=== PATIENT | female | born 1970 | race Caucasian/White ===

== ENCOUNTER 2021-04-13 16:18 | Emergency (ER) | payer OTHER ==
[2021-04-13] MEDS ORDERED: VENTOLIN HFA IN18 GM INH (18:21)
[2021-04-13] MEDS ORDERED: MEDROL 4MG DOSEP4 MG PO (18:21)
== END 2021-04-13 18:35 | disposition home or self-care (01) ==
LOC: FER 16:18
DX: J45.901 Unspecified asthma with (acute) exacerbation (principal)
CPT/HCPCS: J2930; J7030